=== PATIENT | male | born 1990 | race African-American/Black ===

== ENCOUNTER 2022-01-03 13:36 | Emergency (ER) | payer OTHER, MEDICAID ==
[~2022-01-03] VITALS: Ht 182.8 cm; Wt 88.5 kg
[~2022-01-03 13:36] MED LIST: AUGMENTIN 875-875 MG PO; BACTRIM DS 8001 TA1 PO; BACTROBAN CREAM15 GM T; CEPHALEXIN500 M1 PO; CIPRO500 MG PO; CLEOCIN150 MG PO; DOXYCYCLINE HY100 M3 PO; HYDROCODONE BIT1 T11 PO; INDOMETHACIN50 MG PO; MOTRIN800 MG PO; Motrin,Rufen800 MG PO; NAPROSYN500 MG PO; PHENERGAN25 M3 PO; PREDNISONE10 MG PO; TYLENOL325 M1 PO; XANAX1 MG PO
[2022-01-03] MEDS ORDERED: Bactroban Oint22 GM T ×3 (15:21→15:38)
[2022-01-03] MEDS ORDERED: VIBRAMYCIN100 MG PO ×3 (15:21→15:38)
[2022-01-03] MEDS ORDERED: TRAMADOL HCL50 MG PO (15:34)
== END 2022-01-03 15:24 | disposition home or self-care (01) ==
LOC: ED 13:36
DX: S71.101A Unspecified open wound, right thigh, initial encounter (principal); Z88.0 Allergy status to penicillin; Z88.1 Allergy status to other antibiotic agents; Z88.8 Allergy status to other drugs, medicaments and biological substances; Z98.890 Other specified postprocedural states; W26.8XXA Contact with other sharp object(s), not elsewhere classified, initial encounter; Y93.89 Activity, other specified; Y92.89 Other specified places as the place of occurrence of the external cause; Y99.8 Other external cause status

== ENCOUNTER 2022-11-16 22:17 | Emergency (ER) | payer OTHER ==
[~2022-11-16] VITALS: Ht 182.8 cm; Wt 88.5 kg
[~2022-11-16 22:17] MED LIST changes: +Bactroban Oint22 GM T; +TRAMADOL HCL50 MG PO; +VIBRAMYCIN100 MG PO
[2022-11-16] MEDS ORDERED: CLINDAMYCIN HC300 MG PO (22:33)
== END 2022-11-16 22:49 | disposition home or self-care (01) ==
LOC: ED 22:17
DX: K08.89 Other specified disorders of teeth and supporting structures (principal); F31.9 Bipolar disorder, unspecified; J45.909 Unspecified asthma, uncomplicated; Z88.0 Allergy status to penicillin; Z88.6 Allergy status to analgesic agent; Z88.5 Allergy status to narcotic agent; Z88.2 Allergy status to sulfonamides; Z88.8 Allergy status to other drugs, medicaments and biological substances; Z98.890 Other specified postprocedural states; F12.90 Cannabis use, unspecified, uncomplicated

== ENCOUNTER 2023-05-17 02:10 | Emergency (ER) | payer OTHER, BC ==
[~2023-05-17] VITALS: Ht 182.8 cm; Wt 86.2 kg
[~2023-05-17 02:10] MED LIST changes: +CLINDAMYCIN HC300 MG PO
[2023-05-17] MEDS ORDERED: PREDNISONE10 MG PO (03:16)
== END 2023-05-17 05:46 | disposition home or self-care (01) ==
LOC: ED 02:10
DX: S39.012A Strain of muscle, fascia and tendon of lower back, initial encounter (principal); F31.9 Bipolar disorder, unspecified; J45.909 Unspecified asthma, uncomplicated; F12.90 Cannabis use, unspecified, uncomplicated; Z88.0 Allergy status to penicillin; Z88.6 Allergy status to analgesic agent; Z88.2 Allergy status to sulfonamides; Z88.5 Allergy status to narcotic agent; Z88.8 Allergy status to other drugs, medicaments and biological substances; Z98.890 Other specified postprocedural states; Y09 Assault by unspecified means; Y93.89 Activity, other specified; Y92.89 Other specified places as the place of occurrence of the external cause; Y99.0 Civilian activity done for income or pay

== ENCOUNTER 2024-02-29 12:02 | Emergency (ER) | payer OTHER ==
[~2024-02-29] VITALS: Ht 182.8 cm; Wt 83.9 kg
[2024-02-29] MEDS ORDERED: Ondansetron Hydrochloride 4 MG/2 ML VIAL IV ONE (12:30)
[2024-02-29] MEDS ORDERED: MORPHINE Sulfate 2 MG/ML SYR IV ONE (12:30)
[2024-02-29 12:50] LABS: BASO % 0.2 % (0.0-1.0); EOS % 0.5 % (1.0-4.0); HEMATOCRIT 46.1 % (42.0-52.0); MEAN CELL VOLUME 86.5 fl (80.0-94.0); MEAN CORPUSCULAR HGB 29.1 pg (27.0-31.0); MEAN CORPUSCULAR HGB CONC 33.6 g/dl (33.0-37.0); MEAN PLATELET VOLUME 10.3 fl (9.6-12.3); MONO # 0.4 10*3/uL (0.1-1.0); MONO % 7.8 % (3.0-9.0); NEUT # 3.5 10*3/uL (2.3-7.9); NEUT % 62.8 % (47.0-73.0); PLATELET COUNT AUTOMATED 230 10*3/uL (130-400); RED BLOOD COUNT 5.33 10*6/uL (4.50-5.90); RED CELL DISTRI WIDTH 12.9 % (0-14.5); WHITE BLOOD COUNT 5.6 10*3/uL (4.8-10.8)
[2024-02-29 13:22] LABS: BILIRUBIN Negative (Negative); BLOOD Negative (Negative); CLARITY Clear (Clear); COLOR Yellow (Yellow); GLUCOSE Negative (Negative); KETONE Negative (Negative); LEUKO ESTERASE Negative (Negative); NITRITE Negative (Negative); UROBILINOGEN 0.2 E.U./dl (0.0-1.0)
[2024-02-29 13:30] LABS: URINE AMPHETAMINES Negative (1000ng/ml); URINE BARBITURATES Negative (200ng/ml); URINE BENZODIAZEPINES Negative (200ng/ml); URINE CANNABINOIDS (THC) Positive (50ng/ml); URINE COCAINE Negative (300ng/ml); URINE METHADONE Negative (300ng/ml); URINE OPIATES Negative (300ng/ml); URINE PHENCYCLIDINE Negative (25ng/ml)
[2024-02-29 13:34] LABS: WBC 0-2 wbc/hpf (0-5)
[2024-02-29 13:39] LABS: ALKALINE PHOSPHATASE 55 U/L (46-116); BUN 13 mg/dl (9-23); CHLORIDE 106 mmol/L (98-107); LIPASE 26 U/L (12-53); POTASSIUM 3.8 mmol/L (3.4-5.1); SGPT/ALT 45 U/L (5-49)
[2024-02-29] MEDS ORDERED: Metoclopramide Hydrochloride 10 MG/2 ML VIAL IV ONE (14:30)
[2024-02-29] MEDS ORDERED: Ketorolac Tromethamine 30 MG/ML VIAL IV ONE (14:30)
[2024-02-29] MEDS ORDERED: diphenhydrAMINE hydrochloride 50 MG/ML VIAL IV ONE (14:30)
[2024-02-29] MEDS ORDERED: Ondansetron4 MG PO (15:23)
== END 2024-02-29 15:48 | disposition home or self-care (01) ==
LOC: ED 12:02
PROVIDERS: Physician Assistant Medical
DX: K52.9 Noninfective gastroenteritis and colitis, unspecified (principal); F31.9 Bipolar disorder, unspecified; J45.909 Unspecified asthma, uncomplicated; F17.210 Nicotine dependence, cigarettes, uncomplicated; Z88.0 Allergy status to penicillin; Z88.6 Allergy status to analgesic agent; Z88.2 Allergy status to sulfonamides

== ENCOUNTER 2024-06-14 18:47 | Emergency (ER) | payer OTHER ==
[~2024-06-14] VITALS: Ht 182.8 cm; Wt 83.9 kg
[~2024-06-14 18:47] MED LIST changes: +Ondansetron4 MG PO
[2024-06-14] MEDS ORDERED: METHOCARBAMOL 750 MG TAB PO ONE (21:15)
[2024-06-14] MEDS ORDERED: Ketorolac Tromethamine 60 MG/2 ML VIAL IM ONE (21:15)
[2024-06-14] MEDS ORDERED: METHOCARBAMOL750 M1 PO (21:17)
[2024-06-14] MEDS ORDERED: NAPROXEN250 MG PO (21:17)
[2024-06-14] MEDS ORDERED: NAPROXEN 250 MG TAB PO ONE (21:30)
== END 2024-06-14 21:20 | disposition home or self-care (01) ==
LOC: ED 18:47
DX: S16.1XXA Strain of muscle, fascia and tendon at neck level, initial encounter (principal); R07.89 Other chest pain; Z88.0 Allergy status to penicillin; Z88.6 Allergy status to analgesic agent; Z88.2 Allergy status to sulfonamides; Z98.890 Other specified postprocedural states; V43.52XA Car driver injured in collision with other type car in traffic accident, initial encounter; Y93.I9 Activity, other involving external motion; Y92.488 Other paved roadways as the place of occurrence of the external cause; Y99.8 Other external cause status

== ENCOUNTER 2024-06-29 18:49 | Emergency (ER) | payer OTHER ==
[~2024-06-29 18:49] MED LIST changes: -ZANAFLEX4 MG PO
[2024-06-30] MEDS ORDERED: TRAMADOL HCL50 MG PO (19:08)
[2024-06-30] MEDS ORDERED: ZANAFLEX4 MG PO (19:08)
== END 2024-06-29 19:36 | disposition left against medical advice (07) ==
LOC: ED 18:49
DX: Z01.89 Encounter for other specified special examinations (principal); Z53.21 Procedure and treatment not carried out due to patient leaving prior to being seen by health care provider

== ENCOUNTER → 2024-06-29 | Outpatient (CLI) | payer OTHER ==
[~2024-06-29] MED LIST changes: +METHOCARBAMOL750 M1 PO; +NAPROXEN250 MG PO; +ZANAFLEX4 MG PO
[2024-06-29 11:43] LABS: HEMATOCRIT 46.3 % (42.0-52.0); MEAN CELL VOLUME 86.2 fl (80.0-94.0); MEAN CORPUSCULAR HGB 28.3 pg (27.0-31.0); MEAN CORPUSCULAR HGB CONC 32.8 g/dl (33.0-37.0); MEAN PLATELET VOLUME 10.2 fl (9.6-12.3); RED BLOOD COUNT 5.37 10*6/uL (4.50-5.90); RED CELL DISTRI WIDTH 13.2 % (0-14.5); WHITE BLOOD COUNT 4.6 10*3/uL (4.8-10.8)
[2024-06-29 12:15] LABS: ALKALINE PHOSPHATASE 54 U/L (46-116); BUN 14 mg/dl (9-23); CHLORIDE 106 mmol/L (98-107); CHOLESTEROL 206 mg/dL (<200); LDL CHOLESTEROL 129 mg/dL (9-159); POTASSIUM 4.6 mmol/L (3.4-5.1); SGPT/ALT 49 U/L (5-49); TOTAL PROTEIN 7.4 gm/dL (6.0-8.0); TRIGLYCERIDES 53 mg/dl (<150)
[2024-06-29 14:10] LABS: VITAMIN D, 25-HYDROXY 21.1 ng/mL (30-100)
== END | disposition home or self-care (01) ==
LOC: LAB 10:46
PROVIDERS: ATTEND Family Medicine
DX: M25.512 Pain in left shoulder (principal); E55.9 Vitamin D deficiency, unspecified; Z13.220 Encounter for screening for lipoid disorders

== ENCOUNTER 2024-06-30 18:43 | Emergency (ER) | payer OTHER ==
[~2024-06-30] VITALS: Ht 182.8 cm; Wt 86.2 kg
[2024-06-30] MEDS ORDERED: ZANAFLEX4 MG PO (19:08)
[2024-06-30] MEDS ORDERED: TRAMADOL HCL50 MG PO (19:08)
[2024-06-30] MEDS ORDERED: Acetaminophen/Oxycodone 5 MG/325 MG TABLET PO ONE (19:10)
[2024-06-30] MEDS ORDERED: traMADol Hydrochloride 50 MG TAB PO ONE (19:15)
== END 2024-06-30 19:21 | disposition home or self-care (01) ==
LOC: ED 18:43
DX: S43.102D Unspecified dislocation of left acromioclavicular joint, subsequent encounter (principal); Z79.899 Other long term (current) drug therapy; Z88.0 Allergy status to penicillin; Z88.2 Allergy status to sulfonamides; Z88.5 Allergy status to narcotic agent; Z88.6 Allergy status to analgesic agent; Z88.8 Allergy status to other drugs, medicaments and biological substances; V49.3XXD Car occupant (driver) (passenger) injured in unspecified nontraffic accident, subsequent encounter

== ENCOUNTER 2024-09-17 14:15 | Emergency (ER) | payer SELFPAY ==
[~2024-09-17] VITALS: Ht 182.8 cm; Wt 79.4 kg
[~2024-09-17 14:15] MED LIST changes: +ZANAFLEX4 MG PO
[2024-09-17] MEDS ORDERED: CLINDAMYCIN HC300 MG PO (16:09)
== END 2024-09-17 16:17 | disposition home or self-care (01) ==
LOC: ED 14:15
DX: J02.9 Acute pharyngitis, unspecified (principal); R50.9 Fever, unspecified; J45.909 Unspecified asthma, uncomplicated; F31.9 Bipolar disorder, unspecified; F12.90 Cannabis use, unspecified, uncomplicated; Z79.899 Other long term (current) drug therapy; Z88.0 Allergy status to penicillin; Z88.2 Allergy status to sulfonamides; Z88.5 Allergy status to narcotic agent; Z88.6 Allergy status to analgesic agent; Z98.890 Other specified postprocedural states

== ENCOUNTER 2024-12-11 16:57 | Emergency (ER) | payer SELFPAY ==
[~2024-12-11] VITALS: Wt 81.6 kg
[2024-12-11] MEDS ORDERED: VIBRAMYCIN100 MG PO (17:36)
[2024-12-11] MEDS ORDERED: metroNIDAZOLE 500 MG TAB PO ONE (17:55)
[2024-12-11] MEDS ORDERED: Water, Sterile 10 ML VIAL ONE (18:06)
== END 2024-12-11 17:41 | disposition home or self-care (01) ==
LOC: ED 16:57
DX: Z20.2 Contact with and (suspected) exposure to infections with a predominantly sexual mode of transmission (principal); F12.90 Cannabis use, unspecified, uncomplicated; F31.9 Bipolar disorder, unspecified; J45.909 Unspecified asthma, uncomplicated; I10 Essential (primary) hypertension; Z87.440 Personal history of urinary (tract) infections; Z88.0 Allergy status to penicillin; Z88.1 Allergy status to other antibiotic agents; Z88.5 Allergy status to narcotic agent

== ENCOUNTER 2025-01-23 19:54 | Emergency (ER) | payer SELFPAY ==
[~2025-01-23] VITALS: Ht 182.8 cm; Wt 81.6 kg
[2025-01-23 20:40] LABS: BILIRUBIN Negative (Negative); BLOOD Negative (Negative); CLARITY Clear (Clear); COLOR Dark Yellow (Yellow); KETONE Trace (Negative); LEUKO ESTERASE 1+ (Negative); NITRITE Negative (Negative); PH 6.5 (4.5-8.0); SPECIFIC GRAVITY >= 1.030 (1.001-1.030); UROBILINOGEN 1.0 E.U./dl (0.0-1.0)
[2025-01-23 21:13] LABS: MUCOUS 3+
[2025-01-23] MEDS ORDERED: Ciprofloxacin Hydrochloride 500 MG TAB PO ONE (21:20)
[2025-01-23] MEDS ORDERED: CIPRO500 MG PO (21:23)
== END 2025-01-23 21:27 | disposition home or self-care (01) ==
LOC: ED 19:54
PROVIDERS: Emergency Medicine
DX: N30.00 Acute cystitis without hematuria (principal); Z88.0 Allergy status to penicillin; Z88.6 Allergy status to analgesic agent; Z88.2 Allergy status to sulfonamides; Z79.899 Other long term (current) drug therapy

== ENCOUNTER 2025-03-05 23:51 | Emergency (ER) | payer OTHER ==
[~2025-03-05] VITALS: Ht 185.4 cm; Wt 74.8 kg
== END 2025-03-06 01:50 | disposition home or self-care (01) ==
LOC: ED 23:51
DX: J45.909 Unspecified asthma, uncomplicated (principal); F31.9 Bipolar disorder, unspecified; F12.90 Cannabis use, unspecified, uncomplicated; Z88.0 Allergy status to penicillin; Z88.1 Allergy status to other antibiotic agents; Z88.5 Allergy status to narcotic agent; Z88.8 Allergy status to other drugs, medicaments and biological substances